=== PATIENT | female | born 1985 | race Caucasian/White ===

== ENCOUNTER 2022-07-24 17:14 | Outpatient (CLI) | payer OTHER | END 2022-07-24 18:09 | disposition home or self-care (01) | LOC: NST 17:14 | PROVIDERS: ATTEND Student in an Organized Health Care Education/Training Program | DX: Z34.83 Encounter for supervision of other normal pregnancy, third trimester (principal) ==

== ENCOUNTER 2022-08-03 11:24 | Inpatient (IN) | payer OTHER ==
[~2022-08-03] VITALS: Ht 162.6 cm; Wt 73.5 kg
[2022-08-04] MEDS ORDERED: PRENATAL TABLE1 EAC4 PO (08:01)
[2022-08-04] MEDS ORDERED: PEPCID AC20 MG PO (08:02)
== END 2022-08-06 13:07 | disposition home or self-care (01) | DRG 768 ==
LOC: OB/GYN 11:24 → LDR 08-04 07:55 → OB/GYN 08-04 13:27
PROVIDERS: ADMIT Obstetrics & Gynecology; ATTEND Obstetrics & Gynecology
PROC: 10E0XZZ Delivery of Products of Conception, External Approach (ICD-10-PCS; principal; 2022-08-04)
PROC: 0DQR0ZZ Repair Anal Sphincter, Open Approach (ICD-10-PCS; 2022-08-04)
PROC: 4A1HXCZ Monitoring of Products of Conception, Cardiac Rate, External Approach (ICD-10-PCS; 2022-08-04)
DX: O70.21 Third degree perineal laceration during delivery, IIIa (principal); Z37.0 Single live birth; Z3A.40 40 weeks gestation of pregnancy; Z20.822 Contact with and (suspected) exposure to COVID-19

== ENCOUNTER 2024-11-16 05:27 | Day surgery (SDC) | payer OTHER ==
[2024-11-10 08:49] VITALS: BP 114/75
[2024-11-10 09:23] LABS: BASO % 0.6 % (0.1-1.2); EOS % 4.5 % (0.7-7.0); HEMATOCRIT 38.5 % (34.1-44.9); HEMOGLOBIN 12.4 g/dL (11.2-15.7); LYMPH # 1.19 (1.18-3.74); MEAN CORPUSCULAR HEMOGLOBIN 28.8 pg (25.6-32.2); MONO # 0.48 (0.24-0.82); MONO % 7.3 % (4.7-12.5); NEUT # 4.55 (1.56-6.13); PLATELET COUNT 265 K/uL (163-369); RED BLOOD COUNT 4.31 M/uL (3.93-5.22); RED CELL DISTRIBUTION WIDTH 12.7 % (11.6-14.4)
[2024-11-10 09:37] LABS: URINE APPEARANCE Clear; URINE BILIRRUBIN Negative (NEGATIVE); URINE BLOOD Negative; URINE COLOR Yellow; URINE GLUCOSE Negative (NEGATIVE); URINE KETONE Negative (NEGATIVE); URINE LEUKOCYTE Negative; URINE NITRATE Negative; URINE PROTEIN Negative (NEGATIVE); URINE UROBILINOGEN 0.2 E.U./dl
[2024-11-10 09:41] LABS: URINE BACTERIA 507.7 uL (0.0-1933); URINE EPITHELIAL CELLS 5.3 uL (0.0-38.8); URINE RBC 7.2 uL (0.0-20.8); URINE WBC 6.1 uL (0.0-23.2)
[2024-11-10 09:45] LABS: URINE CAST 0.14 uL (0.0-1.40)
[2024-11-10 09:45] LABS: INR 0.97; PARTIAL THROMBOPLASTIN TIME 26.5 SECONDS (22.0-34.0); PROTHROMBIN TIME 10.6 SECONDS (9.0-11.5)
[2024-11-10 10:08] LABS: BILIRUBIN TOTAL 0.67 mg/dL (0.3-1.2); CALCIUM 8.8 mg/dL (8.5-10.1); CREATININE SERUM 0.55 mg/dL (0.55-1.02); GFR 123.05; GLOBULINA 3.4 G/DL (2.4-3.5); POTASSIUM 4.64 mEq/L (3.5-5.1); TOTAL PROTEIN 7.4 gm/dL (6.4-8.2); TSH 0.873 uIU/mL (0.358-3.74)
[~2024-11-16] VITALS: Ht 165.1 cm; Wt 62.1 kg
[~2024-11-16 05:27] MED LIST: PEPCID AC20 MG PO; PRENATAL TABLE1 EAC4 PO
[2024-11-16] MEDS ORDERED: CEFOXITIN SODIUM 2,000 MG VIAL IV ONE (07:06)
[2024-11-16] MEDS ORDERED: POVIDONE-IODINE 118 ML BOTT TOP ONE (07:30)
[2024-11-16] MEDS ORDERED: NAPR500T14 PO (08:57)
[2024-11-16] MEDS ORDERED: MONODOX100 MG PO (08:57)
[2024-11-16] MEDS ORDERED: MORPHINE SULFATE 4 MG/ML VIAL IV PRN (09:00)
[2024-11-16] MEDS ORDERED: PROMETHAZINE HCL 50 MG/ML AMPUL IM ONE (09:00)
== END 2024-11-16 13:35 | disposition home or self-care (01) ==
LOC: CIR.AMB 05:27
PROVIDERS: ATTEND Obstetrics & Gynecology
DX: D25.0 Submucous leiomyoma of uterus (principal); N84.0 Polyp of corpus uteri; N93.8 Other specified abnormal uterine and vaginal bleeding; N87.0 Mild cervical dysplasia; N72 Inflammatory disease of cervix uteri